=== PATIENT | female | born 1985 | race African-American/Black ===

== ENCOUNTER 2016-12-29 21:28 | Emergency (ER) | payer OTHER ==
[2016-12-29] MEDS ORDERED: Ibuprofen 800 MG TAB ONE (21:53)
[2016-12-29] MEDS ORDERED: Famotidine 20 MG TAB ONE (21:58)
[2016-12-29] MEDS ORDERED: Azithromycin 250 MG TAB ONE (22:13)
--- NOTE | 2016-12-29 22:26 | PICIS ---
[facility] EMERGENCY RECORD GREET GREET: Greet: WedDec 29, 2016 21:44. (21:44 RNAL) NOTES: Patient arrived ambulatory. (WedDec 29, 2016 21:48 MBOS) TRIAGE (WedDec 29, 2016 21:48 MBOS) PATIENT: NAME: Eloisa Mendoza, GENDER: female, TIME OF GREET: WedDec 29, 2016 21:44 by Manasa Guerrero, REGISTRAR, ETHNICITY: Not or , KG WEIGHT: 70.76, , PCP: Hemanth PIKE WADE. (WedDec 29, 2016 21:48 MBOS) TRIAGE NOTES: ear aches, runny nose, body aches, sneezing, coughing, x 2 days. (WedDec 29, 2016 21:48 MBOS) COMPLAINT: FLU LIKE SYMP,EAR PAIN. (WedDec 29, 2016 21:48 MBOS) ADMISSION: URGENCY: 4 Non Urgent, ADMISSION SOURCE: Home, TRANSPORT: CAR, BED: ER -03. (WedDec 29, 2016 21:48 MBOS) ASSESSMENT: Assessment: patient complaining of flu-like symptoms x 2 days. Cough, sneezing, runny nose, body aches, ear aches. (21:51 MBOS) IMMUNIZATIONS: Flu vaccine up to date, Tetanus immunization up to date, Pneumococcal vaccine not up to date. (21:51 MBOS) SIRS SCORING: Heart Rate 110-139 (2), Temp range 96.8-101.1 (0), respiratory rate 12-24 (0). (21:51 MBOS) PROVIDERS: TRIAGE NURSE: Yoly Martinez RN. (WedDec 29, 2016 21:48 MBOS) VITAL SIGNS: BP 133/90, Pulse 129, Resp 20, Temp 99.8, (Oral), O2 Sat 99, on Room Air, Time 12/29/2016 21:47. (21:47 MBOS) KNOWN ALLERGIES No Known Drug Allergies (Unconfirmed) none CURRENT MEDICATIONS folic acid: TABLET : Strength - 0.4 mg : ORAL Patient Dose: Unknown. (21:48 MBOS) predniSONE: TABLET : Strength - 20 mg : ORAL Patient Dose: Unknown. (21:49 MBOS) methotrexate: POWDER (GRAM) : MISCELLANEOUS Patient Dose: Unknown. (21:49 MBOS) VITAL SIGNS (21:47 MBOS) VITAL SIGNS: BP: 133/90, Pulse: 129, Resp: 20, Temp: 99.8 (Oral), O2 sat: 99 on Room Air, Time: 12/29/2016 21:47. NURSING ASSESSMENT: RESPIRATORY /CHEST (21:56 MBOS) CONSTITUTIONAL: Patient arrives ambulatory, Gait steady, History obtained from patient, Patient appears, generally ill, Patient cooperative, Patient alert, Oriented to person, place and time, Skin warm, Skin dry, Skin normal in color, Mucous membranes &a-1R&a+25V*p+0X*w3482C*c202B*c15G*c2P*p-0X&a-25V&a+1R Name: Eloisa Mendoza : 1985 F31 MedRec: [id number] AcctNum: [id number] Prepared: Maureen Dec 29, 2016 22:39 by Interface Page 1 of 7 pMD [facility] EMERGENCY RECORD pink, Mucous membranes moist, Patient is well-groomed, Patient complains of ear aches, body aches, cough, sneezing. RESPIRATORY/CHEST: Breath sounds clear, Respiratory assessment findings include respiratory effort easy, Respirations regular, Conversing normally, Neck and chest exam findings include trachea midline, Chest expansion equal, Chest movement symmetrical. ENT: Ear assessment findings include ear normal to inspection, Nasal assessment findings include nose normal to inspection, Sinuses normal, Nasal mucosa normal, Mouth and throat assessment findings include mouth inspection normal, Uvula normal, Tonsils normal, Mucous membranes pink, and moist, Able to swallow, Speech normal. SAFETY: Side rails up, Cart/Stretcher in lowest position, Call light within reach, Hospital ID band on. NURSING PROCEDURE: DISCHARGE NOTE (22:16 MBOS) DISCHARGE: Patient discharged to home, ambulating without assistance, driving self, unaccompanied, Summary of Care printed/ provided, Discharge instructions given to patient, Simple or moderate discharge teaching performed, Prescriptions given and instructions on side effects given, Above person(s) verbalized understanding of discharge instructions and follow-up care, Patient treated and evaluated by physician. NURSING PROCEDURE: NURSE NOTES (22:00 MBOS) NURSES NOTES: Patient in no apparent distress, Warm blanket given to patient, Beverage given to patient, Patient is awaiting results. ORDER DETAILS Order Name: Influenza A&B Ag Screen, Status: Active, Time: 21:50 12/29/2016, User: ROSEMARY, - Ordered for: MD Dewey Kim, - Entered by: MD Dewey Kim - Tue Dec 29, 2016 21:50, - Quantity: 1, Order Name: Strep Group A Screen, Status: Active, Time: 21:50 12/29/2016, User: ROSEMARY, - Ordered for: MD Dewey Kim, - Entered by: MD Dewey Kim - WedDec 29, 2016 21:50, - Quantity: 1. MEDICATION ADMINISTRATION SUMMARY Drug Name: *azithromycin oral, Dose Ordered: 500 mg, Route: Oral, Status: Given, Time: 22:16 12/29/2016, Drug Name: Pepcid oral, Dose Ordered: 20 mg, Route: Oral, Status: Given, Time: 22:00 12/29/2016, Drug Name: ibuprofen, Dose Ordered: 1 tab(s), Route: Oral, Status: Given, Time: 21:55 12/29/2016, *Additional information available in notes, Detailed record available in Medication Service section. &a-1R&a+25V*p+0X*d1310D*c202B*c15G*c2P*p-0X&a-25V&a+1R Name: Eloisa Mendoza : 1985 F31 MedRec: [id number] AcctNum: [id number] Prepared: WedDec 29, 2016 22:39 by Interface Page 2 of 7 pMD [facility] EMERGENCY RECORD MEDICATION SERVICE azithromycin oral: Order: azithromycin oral (azithromycin) - Dose: 500 mg : Oral Schedule: Now Notes: 500 mg po x 1 Ordered by: Anh Dewey MD Entered by: Anh Dewey MD WedDec 29, 2016 22:11 Documented as given by: Yoly Martinez RN WedDec 29, 2016 22:16 Patient, Medication, Dose, Route and Time verified prior to administration. Patient appears Awake and alert- acceptable, Correct patient, time, route, dose and medication confirmed prior to administration, Patient advised of actions and side-effects prior to administration, Allergies confirmed and medications reviewed prior to administration, Patient in position of comfort, Side rails up, Cart in lowest position. ibuprofen: Order: ibuprofen - Dose: 1 tab(s) : Oral POTENTIAL SEVERE INTERACTION: methotrexate - Benefits outweigh risks, Patient tolerated similar in past, Reviewed with patient Schedule: Now Ordered by: Anh Dewey MD Entered by: Anh Dewey MD Dec 29, 2016 21:51 , Acknowledged by: Yoly Martinez RN Dec 29, 2016 21:52 Documented as given by: Yoly Martinez RN Dec 29, 2016 21:55 Patient, Medication, Dose, Route and Time verified prior to administration. Patient appears Awake and alert- acceptable, Correct patient, time, route, dose and medication confirmed prior to administration, Patient advised of actions and side-effects prior to administration, Allergies confirmed and medications reviewed prior to administration, Patient in position of comfort, Side rails up, Cart in lowest position. Pepcid oral: Order: Pepcid oral (famotidine) - Dose: 20 mg : Oral Schedule: Now Ordered by: Anh Dewey MD Entered by: Anh Dewey MD Dec 29, 2016 21:57 , Acknowledged by: Yoly Martinez RN Dec 29, 2016 21:58 Documented as given by: Yoly Martinez RN Dec 29, 2016 22:00 Patient, Medication, Dose, Route and Time verified prior to administration. Patient appears Awake and alert- acceptable, Correct patient, time, route, dose and medication confirmed prior to administration, Patient advised of actions and side-effects prior to administration, Allergies confirmed and medications reviewed prior to administration, Patient in position of comfort, Side rails up, Cart in lowest position. HPI URI (21:57 KNGU) CHIEF COMPLAINT: Patient presents for evaluation of sore &a-1R&a+25V*p+0X*h2342L*c202B*c15G*c2P*p-0X&a-25V&a+1R Name: Eloisa Mendoza : 1985 F31 MedRec: [id number] AcctNum: [id number] Prepared: WedDec 29, 2016 22:39 by Interface Page 3 of 7 pMD [facility] EMERGENCY RECORD throat, Patient presents for evaluation of nasal congestion, Patient presents for evaluation of cough, Patient presents for evaluation of fever. HISTORIAN: History provided by patient, 31 yo F with flu like symptoms x 2 days sorethroat ache fever cough. LOCATION: Symptoms are generalized. QUALITY: Pain is dull in nature. SEVERITY: Maximum severity of symptoms moderate, Currently symptoms are moderate. TIME COURSE: Sudden onset of symptoms, There has been no change in the patient's symptoms over time. ASSOCIATED WITH: No associated chest pain, Associated with chills, Associated with fever, No associated neck pain, No associated shortness of breath. EXACERBATED BY: Patient's condition exacerbated by nothing. RELIEVED BY: Patient's condition relieved by nothing because patient has not tried anything for relief. ROS (21:58 KNGU) CONSTITUTIONAL: Historian reports chills, reports fever. ENT: Historian reports rhinorrhea, reports sore throat. CARDIOVASCULAR: Negative cardiovascular review of systems, Historian denies chest pain, denies palpitations. RESPIRATORY: Historian reports cough. GI: Negative gastrointestinal review of systems, Historian denies abdominal pain, denies constipation, denies diarrhea, denies nausea, denies vomiting. GENITOURINARY FEMALE: Negative genitourinary review of systems, Historian denies dysuria, denies frequency. SKIN: Negative skin review of systems, Historian denies rash, denies skin changes. NEUROLOGIC: Negative neurologic review of systems, Historian denies headache. HEMO/LYMPHATIC: Normal hematologic/lymphatic system review, Historian denies abnormal blood clotting. PAST MEDICAL HISTORY (21:51 MBOS) MEDICAL HISTORY: Flu vaccine up to date, Tetanus immunization up to date, Pneumococcal vaccine not up to date, Past medical history includes gastrointestinal disease, peptic ulcer disease, had bleeding ulcer in May, Past medical history includes musculoskeletal disorder, rheumatoid arthritis. FEMALE SURGICAL HISTORY: Patient has no surgical history. PSYCHIATRIC HISTORY: No previous psychiatric history. PHYSICAL EXAM CONSTITUTIONAL: Vital signs reviewed, Patient afebrile, &a-1R&a+25V*p+0X*t0733H*c202B*c15G*c2P*p-0X&a-25V&a+1R Name: Eloisa Mendoza : 1985 F31 MedRec: [id number] AcctNum: [id number] Prepared: WedDec 29, 2016 22:39 by Interface Page 4 of 7 pMD [facility] EMERGENCY RECORD Pulse, tachycardic, manual about 108, Blood pressure normal, Respiratory rate normal, Patient appears non toxic, Patient appears pain free, Patient alert and oriented to person, place and time. (21:58 KNGU) EYES: Eye exam normal. (21:59 KNGU) ENT: Ear exam included findings of, tympanic membrane with bulging on the left, tympanic membrane bulging on the right, Nose exam included findings of, white nasal discharge, Pharynx, injected bilaterally. (21:59 KNGU) NECK: Neck exam normal, Neck exam included findings of normal range of motion, Trachea midline, no meningeal signs, no cervical adenopathy, no tenderness. (21:58 KNGU) RESPIRATORY CHEST: Respiratory and chest exam normal, Respiratory exam included findings of no respiratory distress, Breath sounds clear. (21:58 KNGU) CARDIOVASCULAR: Cardiovascular assessment normal, Cardiovascular exam included findings of, rate tachycardic, about 108 per minute, Heart sounds normal. (21:58 KNGU) ABDOMEN FEMALE: Abdominal exam included findings of abdomen nontender, Bowel sounds normal, no distension, no mass, no pulsatile masses, no peritoneal signs, no rigidity, no guarding, no rebound, Rovsing's sign absent. (21:58 KNGU) BACK: Back exam normal, Back exam included findings of normal inspection, range of motion normal, no tenderness. (21:58 KNGU) NEURO: Neuro exam normal, Neuro exam findings include patient oriented to person, place and time, Speech normal, Gait normal. (21:58 KNGU) SKIN: Skin exam normal, Skin exam included findings of skin warm, dry, and normal in color, no rash. (21:58 KNGU) EVENTS TRANSFER: Triage to Emergency Emergency Room -03. (WedDec 29, 2016 21:48 MBOS) Removed from Emergency Emergency Room -03. (22:18 MBOS) DOCTOR NOTES (21:54 KNGU) TEXT: 31 yo F with flu like symptoms x 2 days sorethroat ache fever cough flu negative / strep negative however given clinically symptoms and exam will rx empirically with zpak follow up with pcp as needed. PROBLEM LIST No recorded problems DIAGNOSIS (22:09 KNGU) FINAL: PRIMARY: ACUTE TONSILLITIS UNSPECIFIED. &a-1R&a+25V*p+0X*b7590H*c202B*c15G*c2P*p-0X&a-25V&a+1R Name: Eloisa Mendoza : 1985 F31 MedRec: [id number] AcctNum: [id number] Prepared: WedDec 29, 2016 22:39 by Interface Page 5 of 7 pMD [facility] EMERGENCY RECORD DISPOSITION PATIENT: Disposition Type: Discharge, Disposition: *Discharge Home. (22:09 KNGU) Patient left the department. (22:18 MBOS) INSTRUCTION (22:11 KNGU) DISCHARGE: TONSILLITIS STREP PRESUMED TREATED. FOLLOWUP: Anthony PIKE., [facility], [address] [place] [address], [phone]. SPECIAL: increase fluid intake take medications as prescribed Follow-up with your primary physician as needed. PRESCRIPTION azithromycin oral: TABLET : 250 mg : ORAL : Quantity: 1 Unit: tab(s) Route: ORAL Schedule: once a day (after a meal) Dispense: 6 Unit: tab(s) May substitute. Refills: No Refills . (22:07 KNGU) NOTES: Can take zpak as directed Can take 2 tablets the first day and 1 tablet daily for the next 4 days No Refills. (22:07 KNGU) acetaminophen-codeine: TABLET : 300 mg-30 mg : ORAL : Quantity: 1 Unit: tab(s) Route: ORAL Schedule: every 6 hours PRN Dispense: 15 Unit: tab(s) May substitute. Refills: No Refills . (22:08 KNGU) NOTES: No Refills. (22:08 KNGU) IMAGING (22:17 MBOS) *DISCHARGE INSTRUCTIONS RECEIPT: Image captured from scanner. Page 2 added. Image captured from scanner. *SUPPLY CHARGE SHEET: Image captured from scanner. ADMIN (22:30 KNGU) DIGITAL SIGNATURE: MD Dewey Kim. RESULTS (22:03 KNGU) MICROBIOLOGY: Strep Group A Screen: [id number] Collection DT: WedDec 29, 2016 21:58, See comment below , Source: Throat Spec Desc: , Strep A Negative CDC recommends , confirmation by , culture on all , negative , Strep negative line 1 Group A , Streptococcus rapid , screens. Please , order , &a-1R&a+25V*p+0X*p0053T*c202B*c15G*c2P*p-0X&a-25V&a+1R Name: Eloisa Mendoza : 1985 F31 MedRec: [id number] AcctNum: [id number] Prepared: WedDec 29, 2016 22:39 by Interface Page 6 of 7 pMD [facility] EMERGENCY RECORD Strep negative line 2 a throat culture if , clinically , indicated. , Rapid Strep Screen:Throat Negative . Influenza A&B Ag Screen: [id number] Collection DT: WedDec 29, 2016 21:58, See comment below , Source: Nasal swab Spec Desc: , Influenza A Antigen: NEGATIVE for the , presence of , INFLUENZA A Antigen , Influenza B Antigen: NEGATIVE for the , presence of , INFLUENZA B Antigen , The rapid Flu A&B test can distinguish between influenza A , Influenza A&B Ag Screen See comment below , and B viruses, but it does not differentiate influenza , Influenza A&B Ag Screen See comment below , subtypes. , Influenza A&B Ag Screen See comment below , Influenza A&B Ag Screen See comment below , Influenza A&B Ag Screen See comment below , cultured from a positive human specimen, the performance , Influenza A&B Ag Screen See comment below , characteristics of this device with human specimens infected , Influenza A&B Ag Screen See comment below , with the 2008 H1N1 influenza virus have not been , Influenza A&B Ag Screen See comment below , established. For example: this test cannot distinguish , Influenza A&B Ag Screen See comment below , influenza infections caused by novel H1N1 influenza A , Influenza A&B Ag Screen See comment below , viruses versus seasonal influenza A viruses. , Influenza A&B Ag Screen See comment below , , Influenza A&B Ag Screen See comment below , A negative result does not exclude influenza virus , Influenza A&B Ag Screen See comment below , infection; therefore, if more conclusive testing is desired, , Influenza A&B Ag Screen See comment below , follow up confirmatory testing is warranted., Influenza A&B Ag Screen See comment below . Mart: ROSEMARY=MD Zuleima, nAh VENTURA=KALLIE Martinez, Yoly VIERA=Cesar, COLBYAR, Manasa &a-1R&a+25V*p+0X*v7528Y*c202B*c15G*c2P*p-0X&a-25V&a+1R Name: Eloisa Mendoza : 1985 F31 MedRec: [id number] AcctNum: [id number] Prepared: Maureen Dec 29, 2016 22:39 by Interface Page 7 of 7 pMD [facility]
== END 2016-12-29 22:14 | disposition home or self-care (01) ==
LOC: NAV ERS 21:28
DX: J03.90 Acute tonsillitis, unspecified (principal); M06.9 Rheumatoid arthritis, unspecified; Z79.52 Long term (current) use of systemic steroids; Z79.899 Other long term (current) drug therapy
CPT/HCPCS: 87430; 99283

== ENCOUNTER 2017-10-27 01:32 | Emergency (ER) | payer OTHER ==
[2017-10-27] MEDS ORDERED: predniSONE 20 MG TAB ONE (01:54)
== END 2017-10-27 02:02 | disposition home or self-care (01) ==
LOC: NAV ERS 01:32
DX: T78.40XA Allergy, unspecified, initial encounter (principal); F32.9 Major depressive disorder, single episode, unspecified; Z79.899 Other long term (current) drug therapy
CPT/HCPCS: 99283; J7506

== ENCOUNTER 2017-12-24 13:14 | Emergency (ER) | payer OTHER | END 2017-12-24 13:57 | disposition home or self-care (01) | LOC: NAV ERS 13:14 | DX: H10.11 Acute atopic conjunctivitis, right eye (principal); M06.9 Rheumatoid arthritis, unspecified; F32.9 Major depressive disorder, single episode, unspecified; Z79.899 Other long term (current) drug therapy | CPT/HCPCS: 99283 ==

== ENCOUNTER 2018-10-31 11:52 | Emergency (ER) | payer BC, OTHER ==
[2018-10-31] MEDS ORDERED: methylPREDNISolone Sod Succ/PF 125 MG/2 ML VIAL ONE (12:34)
== END 2018-10-31 12:40 | disposition home or self-care (01) ==
LOC: NAV ERS 11:52
DX: M06.9 Rheumatoid arthritis, unspecified (principal); F32.9 Major depressive disorder, single episode, unspecified; Z79.899 Other long term (current) drug therapy
CPT/HCPCS: 96372; J2930

== ENCOUNTER 2020-02-23 15:52 | Emergency (ER) | payer OTHER, SELFPAY ==
[2020-02-23] MEDS ORDERED: Sodium Chloride 0.9% 1,000 ML ONE ×2 (16:20→17:05)
[2020-02-23] MEDS ORDERED: Pantoprazole 40 MG VIAL ONE (16:20)
[2020-02-23 16:26] LABS: #Lymphocytes 3.5 thou/uL (1.20-3.40); #Monocytes 1.3 thou/uL (0.11-0.59); #Neutrophils 11.1 thou/uL (1.40-6.50); %Basophils 0.8 % (0.0-1.0); %Eosinophils 0.1 % (0.0-10.0); %Lymphocytes 21.9 % (21.0-51.0); %Monocytes 8.1 % (0.0-10.0); %Neutrophils 69.2 % (42.0-75.0); Hemoglobin 9.8 g/dL (12.0-16.0); Mean Corpuscular HGB CONC 30.5 g/dL (32.0-36.0); Mean Corpuscular Hemoglobin 26.4 pg (27.0-31.0); Mean Corpuscular Volume 86.7 fL (78.0-98.0); Mean Platelet Volume 6.1 fL (7.4-10.4); Platelet Count 434 thou/uL (130-400); RBC Distribution Width 14.1 % (11.5-14.5); Red Blood Cell (RBC) Count 3.72 mill/uL (4.20-5.40)
[2020-02-23 16:27] LABS: #Basophils 0.1 thou/uL (0.0-0.2)
[2020-02-23 16:32] LABS: INR-International Normal Ratio 1.2; Prothrombin Time 15.3 SEC (12.0-14.7)
[2020-02-23 16:33] LABS: BHCG - Serum Negative (NEGATIVE); PTT 26.6 SEC (22.9-36.1); Pregs Control Bar Appear? YES (CONTROL BAR)
[2020-02-23] MEDS ORDERED: Ondansetron PF 4 MG/2 ML Vial ONE (16:46)
[2020-02-23 16:55] LABS: ALT (SGPT) 10 U/L (8-55); AST (SGOT) 10 U/L (5-34); Albumin 3.4 g/dL (3.5-5.0); Alkaline Phosphatase 50 U/L (40-110); Anion Gap 18 mmol/L (10-20); BUN (Urea Nitrogen) 26 mg/dL (7.0-18.7); Bilirubin, Total 0.3 mg/dL (0.2-1.2); Calc. Creatinine Clearance 0 mL/min (70-130); Calcium 8.6 mg/dL (7.8-10.44); Carbon Dioxide 20 mmol/L (22-29); Chloride 106 mmol/L (98-107); Estimated GFR-MDRD Greater than 90; Globulin 3.3 g/dL (2.4-3.5); Glucose 182 mg/dL (70-105); Lipase 19 U/L (8-78); Magnesium 1.8 mg/dL (1.6-2.6); Potassium 3.7 mmol/L (3.5-5.1); Protein, Total 6.7 g/dL (6.0-8.3); Sodium 140 mmol/L (136-145)
== END 2020-02-23 17:07 | disposition short-term general hospital (02) ==
LOC: NAV ERS 15:52
DX: K92.0 Hematemesis (principal); D64.9 Anemia, unspecified; M06.9 Rheumatoid arthritis, unspecified; F41.9 Anxiety disorder, unspecified; F32.9 Major depressive disorder, single episode, unspecified; R11.2 Nausea with vomiting, unspecified; Z79.899 Other long term (current) drug therapy
CPT/HCPCS: 80053; 83690; 83735; 84703; 85025; 85610; 85730; 93005; 94760; 96361; 96374; 96375; C9113; J2405; J7050

== ENCOUNTER 2020-02-26 10:48 | Emergency (ER) | payer SELFPAY ==
[2020-02-26] MEDS ORDERED: Pantoprazole 40 MG VIAL ONE (11:09)
[2020-02-26] MEDS ORDERED: Sodium Chloride 0.9% 1,000 ML ONE (11:09)
[2020-02-26] MEDS ORDERED: Ondansetron PF 4 MG/2 ML Vial ONE (11:21)
[2020-02-26 11:34] LABS: ALT (SGPT) 7 U/L (8-55); AST (SGOT) 6 U/L (5-34); Alkaline Phosphatase 43 U/L (40-110); Anion Gap 12 mmol/L (10-20); BUN (Urea Nitrogen) 13 mg/dL (7.0-18.7); Bilirubin, Total 0.1 mg/dL (0.2-1.2); Calc. Creatinine Clearance 0 mL/min (70-130); Calcium 7.7 mg/dL (7.8-10.44); Carbon Dioxide 21 mmol/L (22-29); Chloride 109 mmol/L (98-107); Estimated GFR-MDRD Greater than 90; Globulin 2.7 g/dL (2.4-3.5); Glucose 176 mg/dL (70-105); Lipase 63 U/L (8-78); Potassium 3.1 mmol/L (3.5-5.1); Protein, Total 5.7 g/dL (6.0-8.3); Sodium 139 mmol/L (136-145)
[2020-02-26 11:38] LABS: Hemoglobin 6.9 g/dL (12.0-16.0); Mean Corpuscular HGB CONC 31.7 g/dL (32.0-36.0); Mean Corpuscular Hemoglobin 27.7 pg (27.0-31.0); Mean Corpuscular Volume 87.5 fL (78.0-98.0); Mean Platelet Volume 5.4 fL (7.4-10.4); Platelet Count 378 thou/uL (130-400); RBC Distribution Width 14.4 % (11.5-14.5); White Blood Cell (WBC) Count 25.7 thou/uL (4.8-10.8)
[2020-02-26 11:39] LABS: Anisocytosis SLIGHT = 6-15 cells (100X) (0-5/hpf); Band 5 % (5-11); Hypochromia SLIGHT = 6-15 cells (100X) (0-5/hpf); Lymphocytes 22 % (21-51); MDiff Complete? YES; Monocytes 3 % (0-10); Neutrophil 70 % (42-75); Platelet Morphology Comment Appears Adequate
[2020-02-26 11:40] LABS: BHCG - Serum Negative (NEGATIVE); Pregs Control Bar Appear? YES (CONTROL BAR)
[2020-02-26 12:10] LABS: Bilirubin Negative (Negative); Blood, Urine Large (Negative); Clarity Clear (Clear); Glucose, Urine (Dipstick) Negative (Negative); Leukocyte Negative (Negative); Nitrite Negative (Negative); Protein, Urine (Dipstick) 30 mg/dL (Neg-Trace); Urobilinogen 0.2 mg/dL (Less than 2)
[2020-02-26 12:18] LABS: Bacteria/HPF Rare-Few HPF (None Seen); WBC/HPF 0-3 HPF (0-3)
== END 2020-02-26 12:28 | disposition short-term general hospital (02) ==
LOC: NAV ERS 10:48
DX: I95.9 Hypotension, unspecified (principal); R55 Syncope and collapse; K92.2 Gastrointestinal hemorrhage, unspecified; M06.9 Rheumatoid arthritis, unspecified; F41.9 Anxiety disorder, unspecified; F32.9 Major depressive disorder, single episode, unspecified; Z79.899 Other long term (current) drug therapy
CPT/HCPCS: 80053; 81003; 81015; 83605; 83690; 84703; 85025; 86850; 86900; 86901; 93005; 96374; 96375; C9113; J2405; J7050